=== PATIENT | female | born 1990 | race Caucasian/White ===

== ENCOUNTER 2022-02-23 10:22 | Observation (INO) | payer BC, SELFPAY ==
[2022-02-23] VITALS (18 sets, daily range): BP systolic 95–126; BP diastolic 39–82; PULSE 76–111; RESP 16–20; TEMP 36.8–39.1; O2SAT 94–98; BMI 30.4; BMI 22.6
[2022-02-23 11:08] LABS: Basophils # 0.1 K/mm3 (0-0.2); Basophils % 0.3 % (0.1-2.0); Eosinophils # 0.4 K/mm3 (0.0-0.4); Hematocrit 38.7 % (37.0-47.0); Hemoglobin 12.7 g/dL (12.2-16.2); Lymphocytes # 1.3 K/mm3 (0.7-4.5); Lymphocytes % 6.9 % (10-50); Mean Corpuscular HGB Conc 32.8 g/dL (31.8-35.4); Mean Corpuscular Hemoglobin 30.7 pg (27.0-31.2); Mean Corpuscular Volume 93.6 fl (81-99); Mean Platelet Volume 7.9 fl (7.4-10.4); Monocytes # 0.8 K/mm3 (0.1-1.0); Monocytes % 3.9 % (1.7-9.3); Neutrophils # 16.9 K/mm3 (1.8-7.8); Neutrophils % 86.9 % (37.0-80.0); Platelet Count 364 K/mm3 (142-424); Red Blood Count 4.13 M/mm3 (4.20-5.40); Red Cell Distribution Width 12.8 % (11.5-17.5); White Blood Count 19.4 K/mm3 (4.8-10.8)
[2022-02-23 11:09] LABS: Chloride 106 mmol/L (98-107); Potassium 3.2 mmoL/L (3.5-5.1); Sodium 140 mmol/L (136-145)
--- NOTE | 2022-02-23 11:10 | HMH.EDGENADL ---
Discharge Plan Disposition Patient Disposition: Admitted as Observation Condition: Fair Chief Complaint: Fever Referrals Follow up/Referrals: Provider,Referral, [Primary Care Provider] - See instructions Clinical Impressions Clinical Impression: Abscess of breast Discharge ED Provider: Elie Self General Adult HPI General Chief complaint: Fever Stated complaint: possible infection on breasts, swollen, fever Time Seen by Provider: 02/23/22 11:04 Mode of Arrival: Ambulatory Source of Information: Patient Limitations: No Limitations Description of Symptoms (Recalled from ER Triage Doc. by RN): c/o fever with redness, swelling with yellow pus coming from her left breast. Pt states that she got her nipples pierced approx a month ago and she didnt follow after care as instructed. Pt states that Feb 16 is when she started with yellow pus and then over night the swelling started. 600mg of advil around 7am this morning. History of Present Illness HPI narrative: Complains of abscesses in both breasts. States that she had her nipples pierced on 02/07/2022. On 02/16/2022 she began feeling feverish, flulike symptoms. The next day she had improvement in flu symptoms, but development of redness, induration, pain and tenderness on both breasts, lateral left breast and medial right breast. States that she has been able to express some pus from the nipples, but she does not have any pain at the nipples where her piercings are. Related Data Allergies Allergy/AdvReac Type Severity Reaction Status Date / Time No Known Allergies Allergy Verified 02/23/22 10:43 [facility] Disclaimer: The information contained in this section may have been updated after the patient was seen, as this information can be updated by other users. Social History Smoking Status: Current every day smoker ROS Obtained: Yes Systems reviewed as appropriate & no additional complaints except as documented Constitutional Constitutional: Reports chills, Reports fever(s), Denies headache(s) and Denies weakness ENT Ears, Nose, Mouth, and Throat: Denies headache(s), Denies nasal discharge and Denies sore throat Cardiovascular Cardiovascular: Denies chest pain Respiratory Respiratory: Denies shortness of breath and Denies cough Gastrointestinal Gastrointestingal: Denies abdominal pain, constipation, diarrhea or vomiting Genitourinary Female Genitourinary: Denies difficulty voiding, Denies dysuria and Denies flank pain Musculoskeletal Musculoskeletal: Denies numbness Integumentary/Breasts Skin/Breast: Reports as per HPI Neurologic Neurologic: Denies headache(s), Denies numbness and Denies weakness Physical Exam General General appearance: alert and in no apparent distress Head Head exam: atraumatic and normocephalic Eye Eye exam: Present normal appearance and EOMI ENT ENT exam: Present mucous membranes moist Neck Neck exam: Present normal inspection and trachea midline Chest Chest inspection: Present normal inspection and symmetric chest wall rise Expanded Chest Exam Female Torso: 1. 5 x 7 cm indurated, erythematous, tender mass 2. 5 x 7 cm indurated, erythematous, tender mass Respiratory Respiratory exam: Present normal lung sounds bilaterally; Absent respiratory distress Cardiovascular Cardiovascular exam: Present regular rate, normal rhythm and normal heart sounds Abdominal Exam Abdominal exam: Present soft and normal bowel sounds; Absent distention, tenderness, guarding, rebound or rigidity Extremities Exam Extremities exam: Present normal inspection Neurological Exam Neurological exam: Present alert and oriented X3 Psychiatric Psychiatric exam: Present normal affect and normal mood Skin Skin exam: Present warm and dry Medical Decision Making Anselmo Inquiry Pt receiving controlled substance: No Vital Signs: 02/23/22 10:24 02/23/22 11:00 02/23/22 11:30 Temperature 98.6 F Temperature Source Oral Pulse Rate 98 H 92 H
[2022-02-23 11:12] LABS: Alanine Aminotransferase 18 U/L (12-78); Albumin Level 4.2 g/dl (3.5-5.0); Albumin/Globulin Ratio 1.3 (1.1-1.8); Alkaline Phosphatase 94 U/L (38-126); Anion Gap 14.2 mEq/L (5-15); Aspartate Amino Transferase 24 U/L (14-36); Bilirubin,Total 0.3 mg/dl (0.2-1.3); Blood Urea Nitrogen 7 mg/dl (7-17); Calcium 9.4 mg/dl (8.4-10.2); Carbon Dioxide 23 mmol/L (22.0-30.0); Creatinine Clearance Estimated 145 mL/min (50-200); Estimated Glomerular Filt Rate 98 ml/min (>60); GFR (African American) 119 ML/MIN (>60); Globulin 3.2 g/dL (1.3-3.2); Glucose 127 mg/dl (74-100); Total Protein,Serum 7.4 g/dl (6.3-8.2)
[2022-02-23 11:13] LABS: MANUAL DIFFERENTIAL MANUAL DIFFERENTIAL (MANUAL DIFF)
--- NOTE | 2022-02-23 11:14 | PC.NURSE ---
JJ PAGED SURGEON CONTACT LENS MANUFACTURER.
[2022-02-23 11:18] LABS: C-Reactive Protein 72.6 mg/L (0-4)
[2022-02-23 11:19] LABS: Lactic Acid 0.6 mmol/L (0.7-2.1)
[2022-02-23 11:22] LABS: Eosinophils % 1 % (0-3); Lymphocytes % 8 % (10-50); Monocytes % 9 % (2-9); Neutrophils % 80 % (42-76); Platelet Estimate Normal; RBC Morphology Normal; Total Cells Counted 100
[2022-02-23 11:38] LABS: HCG Qualitative, Serum Negative (Negative)
[2022-02-23 11:43] LABS: Erythrocyte Sedimentation Rate 54 mm/hr (0-20)
--- NOTE | 2022-02-23 12:37 | PC.NURSE ---
paged dr tinajero
--- NOTE | 2022-02-23 12:58 | PC.NURSE ---
nylon operator paging dr. tinajero again at this time
--- NOTE | 2022-02-23 12:59 | PC.NURSE ---
DENNISE YUEN speaking with dr. tinajero
--- NOTE | 2022-02-23 13:08 | PC.NURSE ---
Deondre Hayes here to see pt.
--- NOTE | 2022-02-23 13:26 | EXP.HP ---
History of Present Illness *Admission Date: 02/23/22 *Reason for visit:: Breast pain and fever *History of present illness: Complains of abscesses in both breasts.? States that she had her nipples pierced on 02/07/2022.? On 02/16/2022 she began feeling feverish, flulike symptoms.? The next day she had improvement in flu symptoms, but development of redness, induration, pain and tenderness on both breasts, lateral left breast and medial right breast.? States that she has been able to express some pus from the nipples, but she does not have any pain at the nipples where her piercings are. (above as per ER physician) [facility] Disclaimer: The information contained in this section may have been updated after the patient was seen, as this information can be updated by other users. Medical History (Updated 02/23/22 @ 17:47 by Tiffany Minor RN) No significant past medical history Surgical History (Updated 02/23/22 @ 17:47 by Tiffany Minor RN) History of tooth extraction Family History Cancer Social History (Updated 02/23/22 @ 17:47 by Tiffany Minor RN) Smoking Status: Current every day smoker alcohol intake: current current occupational status: other Travel in the last 8 weeks: None Review of Systems Constitutional Constitutional: Reports body ache(s), Reports chills, Reports fever(s), Denies headache(s), Reports malaise and Denies weakness Eyes Eyes: Denies blurry vision and Denies diplopia ENT Ears, Nose, Mouth, and Throat: Denies headache(s), Denies nasal congestion and Denies sinus pain *Cardiovascular Cardiovascular: Denies chest pain and Denies dyspnea *Respiratory Respiratory: Denies cough and Denies dyspnea *Gastrointestinal Gastrointestinal: Denies loose stools, Reports nausea and Denies vomiting *Genitourinary Genitourinary: Denies difficulty voiding, Denies dysuria and Reports nipple discharge *Musculoskeletal Musculoskeletal: Reports myalgias and Denies numbness Integumentary/Breasts Skin/Breast: Reports breast pain (bilateral), Reports breast skin changes (erythema), Reports breast swelling and Reports nipple discharge *Neurologic Neurologic: Denies headache(s), Denies numbness and Denies weakness Meds Home Medications and Allergies Home Medications Medication Instructions Recorded Confirmed Type No Known Home Medications 02/23/22 02/23/22 History New Prescriptions to Start Prescriptions: Allergies Allergy/AdvReac Type Severity Reaction Status Date / Time No Known Allergies Allergy Verified 02/23/22 10:43 Exam Data for Last 24 hours Vital signs and Labs for Last 24 Hours: Temp Pulse Resp BP Pulse Ox 98.6 F 86 18 121/71 96 02/23/22 10:24 02/23/22 13:00 02/23/22 13:00 02/23/22 13:00 02/23/22 13:00 Laboratory Results - last 24 hr 02/23/22 10:50: WBC 19.4 H, RBC 4.13 L, Hgb 12.7, Hct 38.7, MCV 93.6, MCH 30.7, MCHC 32.8, RDW 12.8, Plt Count 364, MPV 7.9, Neut % (Auto) 86.9 H, Lymph % (Auto) 6.9 L, [place] % (Auto) 3.9, Eos % (Auto) 2.0, Baso % (Auto) 0.3, Neut # (Auto) 16.9 H, Lymph # (Auto) 1.3, [place] # (Auto) 0.8, Eos # (Auto) 0.4, Baso # (Auto) 0.1, Total Counted 100, Neutrophils % (Manual) 80 H, Lymphocytes % (Manual) 8 L, Atypical Lymphs % 2.0, Monocytes % (Manual) 9, Eosinophils % (Manual) 1, Platelet Estimate Normal, RBC Morphology Normal, ESR 54 H 02/23/22 10:50: Sodium 140, Potassium 3.2 L, Chloride 106, Carbon Dioxide 23, Anion Gap 14.2, BUN 7, Creatinine 0.70, Estimated Creat Clear 145, Estimated GFR 98, Est GFR ( Amer) 119, Glucose 127 H, Calcium 9.4, Total Bilirubin 0.3, AST 24, ALT 18, Alkaline Phosphatase 94, C-Reactive Protein 72.6 H, Total Protein 7.4, Albumin 4.2, Globulin 3.2, Albumin/Globulin Ratio 1.3 02/23/22 10:50: Lactate 0.6 L 02/23/22 10:50: Serum HCG, Qual Negative I & O for Last 24 hours: Intake & Output 02/21/22 02/22/22 02/23/22 02/24/22 11:59 11:5
[2022-02-23 13:31] LABS: Coronavirus 19, PCR Not Detected (NotDetected); Influenza A, PCR Not Detected (NotDetected); Influenza B, PCR Not Detected (NotDetected)
--- NOTE | 2022-02-23 13:50 | PC.NURSE ---
Bedside with Dr Graves while he assessed pt
--- NOTE | 2022-02-23 14:03 | EXP.SURG.CON ---
History of Present Illness *Admission Date: 02/23/22 *Reason for visit:: Bilateral breast abscesses *History of present illness: This is a 31-year-old female seen in consultation after evaluation emergency department for developing bilateral breast abscesses. Please see HPI from Emergency Department evaluation and admission H&P below. Forwarded from admission H&P/Emergency Department evaluation: Complains of abscesses in both breasts.? States that she had her nipples pierced on 02/07/2022.? On 02/16/2022 she began feeling feverish, flulike symptoms.? The next day she had improvement in flu symptoms, but development of redness, induration, pain and tenderness on both breasts, lateral left breast and medial right breast.? States that she has been able to express some pus from the nipples, but she does not have any pain at the nipples where her piercings are. (above as per ER physician) [facility] Disclaimer: The information contained in this section may have been updated after the patient was seen, as this information can be updated by other users. Social History Smoking Status: Current every day smoker alcohol intake: current current occupational status: other Travel in the last 8 weeks: None Review of Systems Constitutional Constitutional: Denies headache(s) and Denies weakness ENT Ears, Nose, Mouth, and Throat: Denies headache(s) *Musculoskeletal Musculoskeletal: Denies numbness *Neurologic Neurologic: Denies headache(s), Denies numbness and Denies weakness Meds Home Medications and Allergies New Prescriptions to Start Prescriptions: Allergies Allergy/AdvReac Type Severity Reaction Status Date / Time No Known Allergies Allergy Verified 02/23/22 10:43 Exam (Inpt) Vital signs and Labs for Last 24 Hours: Temp Pulse Resp BP Pulse Ox 98.6 F 76 16 115/67 95 02/23/22 10:24 02/23/22 13:30 02/23/22 13:30 02/23/22 13:30 02/23/22 13:30 Laboratory Results - last 24 hr 02/23/22 10:50: WBC 19.4 H, RBC 4.13 L, Hgb 12.7, Hct 38.7, MCV 93.6, MCH 30.7, MCHC 32.8, RDW 12.8, Plt Count 364, MPV 7.9, Neut % (Auto) 86.9 H, Lymph % (Auto) 6.9 L, [place] % (Auto) 3.9, Eos % (Auto) 2.0, Baso % (Auto) 0.3, Neut # (Auto) 16.9 H, Lymph # (Auto) 1.3, [place] # (Auto) 0.8, Eos # (Auto) 0.4, Baso # (Auto) 0.1, Total Counted 100, Neutrophils % (Manual) 80 H, Lymphocytes % (Manual) 8 L, Atypical Lymphs % 2.0, Monocytes % (Manual) 9, Eosinophils % (Manual) 1, Platelet Estimate Normal, RBC Morphology Normal, ESR 54 H 02/23/22 10:50: Sodium 140, Potassium 3.2 L, Chloride 106, Carbon Dioxide 23, Anion Gap 14.2, BUN 7, Creatinine 0.70, Estimated Creat Clear 145, Estimated GFR 98, Est GFR ( Amer) 119, Glucose 127 H, Calcium 9.4, Total Bilirubin 0.3, AST 24, ALT 18, Alkaline Phosphatase 94, C-Reactive Protein 72.6 H, Total Protein 7.4, Albumin 4.2, Globulin 3.2, Albumin/Globulin Ratio 1.3 02/23/22 10:50: Lactate 0.6 L 02/23/22 10:50: Serum HCG, Qual Negative I & O for Labs for Last 24 Hours: Intake & Output 02/21/22 02/22/22 02/23/22 02/24/22 11:59 11:59 11:59 11:59 Weight 172 lb Constitutional: no acute distress Respiratory: Absent respiratory distress Cardiac: Present Reg Rate and Rhythm Comment:: Firm indurated/erythematous mass lesion consistent with developing abscess along the right medial breast and a similar (slightly larger) developing abscess along the left lateral breast. No fluctuance. Results Labs Result diagrams: 02/23/22 10:50 02/23/22 10:50 Labs: Laboratory Results - last 24 hr 02/23/22 10:50: WBC 19.4 H, RBC 4.13 L, Hgb 12.7, Hct 38.7, MCV 93.6, MCH 30.7, MCHC 32.8, RDW 12.8, Plt Count 364, MPV 7.9, Neut % (Auto) 86.9 H, Lymph % (Auto) 6.9 L, [place] % (Auto) 3.9, Eos % (Auto) 2.0, Baso % (Auto) 0.3, Neut # (Auto) 16.9 H, Lymph # (Auto) 1.3, [place] # (Auto) 0.8, Eos # (Auto) 0.4, Baso # (Auto) 0.1, Total Counted 100, Neutrophils % (Manual) 80 H, Lymphocytes % (Manual)
--- NOTE | 2022-02-23 14:09 | PC.NURSE ---
pt given meal tray
--- NOTE | 2022-02-23 14:18 | PC.NURSE ---
DR MORALEZ GONNA TAKE PT TO OR TOMORROW , MEAL TRAY ORDERED
--- NOTE | 2022-02-23 14:28 | EXP.PHA.CONS ---
Pharmacy Consult Date: 02/23/22 Time: 14:31 Referring provider: HERIBERTO Reason for Consult:: PHARMACY MANAGEMENT OF VANCOMYCIN THERAPY Allergies Allergy/AdvReac Type Severity Reaction Status Date / Time No Known Allergies Allergy Verified 02/23/22 10:43 Home Medications Medication Instructions Recorded Confirmed Type No Known Home Medications 02/23/22 02/23/22 History New Prescriptions to Start Prescriptions: Height: 1.6 m Weight: 78.018 kg Laboratory Results:: Laboratory Results - last 24 hr 02/23/22 10:50: WBC 19.4 H, RBC 4.13 L, Hgb 12.7, Hct 38.7, MCV 93.6, MCH 30.7, MCHC 32.8, RDW 12.8, Plt Count 364, MPV 7.9, Neut % (Auto) 86.9 H, Lymph % (Auto) 6.9 L, [place] % (Auto) 3.9, Eos % (Auto) 2.0, Baso % (Auto) 0.3, Neut # (Auto) 16.9 H, Lymph # (Auto) 1.3, [place] # (Auto) 0.8, Eos # (Auto) 0.4, Baso # (Auto) 0.1, Total Counted 100, Neutrophils % (Manual) 80 H, Lymphocytes % (Manual) 8 L, Atypical Lymphs % 2.0, Monocytes % (Manual) 9, Eosinophils % (Manual) 1, Platelet Estimate Normal, RBC Morphology Normal, ESR 54 H 02/23/22 10:50: Sodium 140, Potassium 3.2 L, Chloride 106, Carbon Dioxide 23, Anion Gap 14.2, BUN 7, Creatinine 0.70, Estimated Creat Clear 145, Estimated GFR 98, Est GFR ( Amer) 119, Glucose 127 H, Calcium 9.4, Total Bilirubin 0.3, AST 24, ALT 18, Alkaline Phosphatase 94, C-Reactive Protein 72.6 H, Total Protein 7.4, Albumin 4.2, Globulin 3.2, Albumin/Globulin Ratio 1.3 02/23/22 10:50: Lactate 0.6 L 02/23/22 10:50: Serum HCG, Qual Negative 02/23/22 13:15: SARS-CoV-2 (PCR) Not detected, Influenza A Untype (PCR) Not detected, Influenza Type B (PCR) Not detected Assessment and Plan Assessment and plan all Dx Assessment and Plan for all problems:: VANCOMYCIN 1500MG IV EVERY 12 HOURS STARTED IN ER. PHARMACY WILL FOLLOW DAILY WHILE PT RECEIVING VANCOMYCIN
--- NOTE | 2022-02-23 16:15 | PC.NURSE ---
pt assigned to room 266 per warehouse lead, states room has to be cleaned and will notify us when room is ready
--- NOTE | 2022-02-23 16:17 | PC.NURSE ---
updated pt on room assignment, pt given warm blanket
--- NOTE | 2022-02-23 16:55 | PC.NURSE ---
DR BAINS AT BS
--- NOTE | 2022-02-23 17:06 | PC.NURSE ---
report called to garo tapia in scu at this time, states she will be down to transport pt.
[2022-02-24] VITALS (21 sets, daily range): BP systolic 97–138; BP diastolic 48–71; PULSE 62–99; RESP 14–18; TEMP 36.6–38.2; O2SAT 91–96; BMI 22.6
--- NOTE | 2022-02-24 06:19 | PC.NURSE ---
pt with bilateral breast redness, tenderness and warm to touch, pt rates pain 9/10; pt has been febrile this shift with temp 102.4 to 100.8; pt is alert and oriented x4, nipple piercings still in place. no acute distress noted.
[2022-02-24 06:25] LABS: Chloride 106 mmol/L (98-107)
[2022-02-24 06:26] LABS: Potassium 3.8 mmoL/L (3.5-5.1); Sodium 137 mmol/L (136-145)
[2022-02-24 06:29] LABS: Anion Gap 12.8 mEq/L (5-15); Blood Urea Nitrogen 7 mg/dl (7-17); Calcium 8.4 mg/dl (8.4-10.2); Carbon Dioxide 22 mmol/L (22.0-30.0); Creatinine Clearance Estimated 150 mL/min (50-200); Estimated Glomerular Filt Rate 98 ml/min (>60); GFR (African American) 119 ML/MIN (>60); Glucose 111 mg/dl (74-100)
[2022-02-24 06:33] LABS: Basophils # 0.1 K/mm3 (0-0.2); Basophils % 0.3 % (0.1-2.0); Eosinophils # 0.4 K/mm3 (0.0-0.4); Eosinophils % 2.3 % (0.1-12.0); Hemoglobin 11.9 g/dL (12.2-16.2); Lymphocytes # 1.7 K/mm3 (0.7-4.5); Lymphocytes % 10.3 % (10-50); Mean Corpuscular HGB Conc 32.2 g/dL (31.8-35.4); Mean Corpuscular Hemoglobin 29.9 pg (27.0-31.2); Mean Corpuscular Volume 92.9 fl (81-99); Monocytes # 0.9 K/mm3 (0.1-1.0); Monocytes % 5.5 % (1.7-9.3); Neutrophils # 13.3 K/mm3 (1.8-7.8); Neutrophils % 81.5 % (37.0-80.0); Platelet Count 330 K/mm3 (142-424); Red Blood Count 3.98 M/mm3 (4.20-5.40); White Blood Count 16.3 K/mm3 (4.8-10.8)
[2022-02-24 06:36] LABS: MANUAL DIFFERENTIAL MANUAL DIFFERENTIAL (MANUAL DIFF)
--- NOTE | 2022-02-24 08:12 | EXP.ACUTE.PN ---
Subjective *Date: 02/24/22 *Time: 08:12 Interval history: Patient states she still feels bad. She has been running a fever. She is supposed to go to surgery this am. Medical Exam Vital signs and Labs for Last 24 Hours: Vital Signs Temp Pulse Pulse Resp BP BP Pulse Ox 02/24/22 08:00 100.1 F H 97 H 18 102/53 L 94 L 02/24/22 03:42 100.8 F H 99 H 14 105/63 L 96 02/23/22 20:00 94 L 02/23/22 20:00 102.4 F H 104 H 16 101/55 L 94 L 02/23/22 17:10 98.3 F 94 H 19 115/61 02/23/22 17:49 98.8 F 84 16 113/63 98 02/23/22 17:33 16 02/23/22 17:03 98.3 F 02/23/22 16:30 88 95/39 L 98 02/23/22 16:00 80 111/58 L 96 02/23/22 16:23 99.0 F 02/23/22 15:30 84 18 105/62 L 97 02/23/22 15:00 78 18 103/60 L 96 02/23/22 14:30 80 16 106/60 L 98 02/23/22 13:30 76 16 115/67 95 02/23/22 13:00 86 18 121/71 96 02/23/22 12:30 78 16 100/71 L 96 02/23/22 12:00 80 18 116/72 97 02/23/22 11:30 92 H 20 114/69 96 02/23/22 11:00 98 H 18 117/65 96 02/23/22 10:24 98.6 F 111 H 18 126/82 97 Intake and Output 02/23/22 02/24/22 02/24/22 19:59 03:59 11:59 Intake Total 240 / 1051 811 / 1051 Output Total 0 / 0 0 / 0 Balance 240 / 1051 0 / 1051 811 / 1051 Intake: Intake, Oral Amount 240 / 240 Intake, Total IV Amount 811 / 811 0.9 % Sodium Chloride 1,000 ml 511 / 511 @ 100 mls/hr IV .Q10H [facility] Rx#: [id number] Vancomycin/Water For Inj (Peg) 300 / 300 1.5 gm In 300 ml @ 150 mls/hr IV Q12H [facility] Rx#:[id number] Output: Output, Urine Amount 0 / 0 0 / 0 Other: Number of Unmeasured Voids 0 1 Weight 178 lb 178 lb 3 oz Patient Weight 02/24/22 11:59 Weight 178 lb 3 oz Laboratory Results - last 24 hr 02/23/22 10:50: WBC 19.4 H, RBC 4.13 L, Hgb 12.7, Hct 38.7, MCV 93.6, MCH 30.7, MCHC 32.8, RDW 12.8, Plt Count 364, MPV 7.9, Neut % (Auto) 86.9 H, Lymph % (Auto) 6.9 L, [place] % (Auto) 3.9, Eos % (Auto) 2.0, Baso % (Auto) 0.3, Neut # (Auto) 16.9 H, Lymph # (Auto) 1.3, [place] # (Auto) 0.8, Eos # (Auto) 0.4, Baso # (Auto) 0.1, Total Counted 100, Neutrophils % (Manual) 80 H, Lymphocytes % (Manual) 8 L, Atypical Lymphs % 2.0, Monocytes % (Manual) 9, Eosinophils % (Manual) 1, Platelet Estimate Normal, RBC Morphology Normal, ESR 54 H 02/23/22 10:50: Sodium 140, Potassium 3.2 L, Chloride 106, Carbon Dioxide 23, Anion Gap 14.2, BUN 7, Creatinine 0.70, Estimated Creat Clear 145, Estimated GFR 98, Est GFR ( Amer) 119, Glucose 127 H, Calcium 9.4, Total Bilirubin 0.3, AST 24, ALT 18, Alkaline Phosphatase 94, C-Reactive Protein 72.6 H, Total Protein 7.4, Albumin 4.2, Globulin 3.2, Albumin/Globulin Ratio 1.3 02/23/22 10:50: Lactate 0.6 L 02/23/22 10:50: Serum HCG, Qual Negative 02/23/22 13:15: SARS-CoV-2 (PCR) Not detected, Influenza A Untype (PCR) Not detected, Influenza Type B (PCR) Not detected 02/24/22 05:27: WBC 16.3 H, RBC 3.98 L, Hgb 11.9 L, Hct 37.0, MCV 92.9, MCH 29.9, MCHC 32.2, RDW 13.0, Plt Count 330, MPV 8.0, Neut % (Auto) 81.5 H, Lymph % (Auto) 10.3, [place] % (Auto) 5.5, Eos % (Auto) 2.3, Baso % (Auto) 0.3, Neut # (Auto) 13.3 H, Lymph # (Auto) 1.7, [place] # (Auto) 0.9, Eos # (Auto) 0.4, Baso # (Auto) 0.1 02/24/22 05:27: Sodium 137, Potassium 3.8, Chloride 106, Carbon Dioxide 22, Anion Gap 12.8, BUN 7, Creatinine 0.70, Estimated Creat Clear 150, Estimated GFR 98, Est GFR ( Amer) 119, Glucose 111 H, Calcium 8.4 I & O for Labs for Last 24 Hours: Intake & Output 02/21/22 02/22/22 02/23/22 02/24/22 11:59 11:59 11:59 11:59 Intake Total 1051 / 1051 Output Total 0 / 0 Balance 1051 / 1051 Weight 172 lb 178 lb 3 oz Constitutional: Present no acute distress Respiratory: Present CTA bilaterally Cardiac: Present Reg Rate and Rhythm GI: Present soft and normal bowel sounds; Absent distention or tenderness Extremities: Absent edema, clubbing or cyano
--- NOTE | 2022-02-24 08:42 | EXP.SURG.PN ---
Subjective Patient reports: no new complaints and still having pain Exam Data for Last 24 hours Vital signs and Labs for Last 24 Hours: Temp Pulse Resp BP Pulse Ox 100.1 F H 97 H 18 102/53 L 94 L 02/24/22 08:00 02/24/22 08:00 02/24/22 08:00 02/24/22 08:00 02/24/22 08:00 Laboratory Results - last 24 hr 02/23/22 10:50: WBC 19.4 H, RBC 4.13 L, Hgb 12.7, Hct 38.7, MCV 93.6, MCH 30.7, MCHC 32.8, RDW 12.8, Plt Count 364, MPV 7.9, Neut % (Auto) 86.9 H, Lymph % (Auto) 6.9 L, [place] % (Auto) 3.9, Eos % (Auto) 2.0, Baso % (Auto) 0.3, Neut # (Auto) 16.9 H, Lymph # (Auto) 1.3, [place] # (Auto) 0.8, Eos # (Auto) 0.4, Baso # (Auto) 0.1, Total Counted 100, Neutrophils % (Manual) 80 H, Lymphocytes % (Manual) 8 L, Atypical Lymphs % 2.0, Monocytes % (Manual) 9, Eosinophils % (Manual) 1, Platelet Estimate Normal, RBC Morphology Normal, ESR 54 H 02/23/22 10:50: Sodium 140, Potassium 3.2 L, Chloride 106, Carbon Dioxide 23, Anion Gap 14.2, BUN 7, Creatinine 0.70, Estimated Creat Clear 145, Estimated GFR 98, Est GFR ( Amer) 119, Glucose 127 H, Calcium 9.4, Total Bilirubin 0.3, AST 24, ALT 18, Alkaline Phosphatase 94, C-Reactive Protein 72.6 H, Total Protein 7.4, Albumin 4.2, Globulin 3.2, Albumin/Globulin Ratio 1.3 02/23/22 10:50: Lactate 0.6 L 02/23/22 10:50: Serum HCG, Qual Negative 02/23/22 13:15: SARS-CoV-2 (PCR) Not detected, Influenza A Untype (PCR) Not detected, Influenza Type B (PCR) Not detected 02/24/22 05:27: WBC 16.3 H, RBC 3.98 L, Hgb 11.9 L, Hct 37.0, MCV 92.9, MCH 29.9, MCHC 32.2, RDW 13.0, Plt Count 330, MPV 8.0, Neut % (Auto) 81.5 H, Lymph % (Auto) 10.3, [place] % (Auto) 5.5, Eos % (Auto) 2.3, Baso % (Auto) 0.3, Neut # (Auto) 13.3 H, Lymph # (Auto) 1.7, [place] # (Auto) 0.9, Eos # (Auto) 0.4, Baso # (Auto) 0.1 02/24/22 05:27: Sodium 137, Potassium 3.8, Chloride 106, Carbon Dioxide 22, Anion Gap 12.8, BUN 7, Creatinine 0.70, Estimated Creat Clear 150, Estimated GFR 98, Est GFR ( Amer) 119, Glucose 111 H, Calcium 8.4 I & O for Last 24 hours: Intake & Output 02/21/22 02/22/22 02/23/22 02/24/22 11:59 11:59 11:59 11:59 Intake Total 1051 / 1051 Output Total 0 / 0 Balance 1051 / 1051 Weight 172 lb 178 lb 3 oz Constitutional Constitutional: no acute distress *Routine Respiratory Exam Respiratory: Absent respiratory distress *Routine Cardiovascular Exam Cardiovascular: Absent tachycardia *Routine Skin Exam Comments: Moderate improvement noted with regard to right medial breast abscess. Less induration and improved cellulitis. Worsening induration and tenderness along left lateral breast abscess. Moderate expansion of cellulitic component. Progress Note: A&P Assessment and plan (1) Abscess of breast: Status: Acute Assessment and plan: Right breast abscess improved on current antibiotics; however, progression of left breast abscess noted this AM. Incision and drainage of bilateral breast abscesses today. I have discussed the risks and benefits including, but not limited to: Bleeding Infection Damage to surrounding tissue Inherent risks of sedation The patient agrees to proceed. (2) Leukocytosis: Status: Acute
[2022-02-24 09:39] LABS: Eosinophils % 2 % (0-3); Lymphocytes % 13 % (10-50); Monocytes % 4 % (2-9); Neutrophils % 81 % (42-76); Platelet Estimate Normal; RBC Morphology Normal; Total Cells Counted 100
--- NOTE | 2022-02-24 10:33 | EXP.ANES.CKL ---
[facility] Disclaimer: The information contained in this section may have been updated after the patient was seen, as this information can be updated by other users. Medical History (Updated 02/23/22 @ 17:47 by Tiffany Minor RN) No significant past medical history Surgical History (Updated 02/23/22 @ 17:47 by Tiffany Minor RN) History of tooth extraction Family History Other Cancer Social History (Updated 02/23/22 @ 17:47 by Tiffany Minor RN) Smoking Status: Current every day smoker alcohol intake: current substance use type: denies use current occupational status: other Travel in the last 8 weeks: None [facility] Anesthesia Checklist Patient Identification Patient Identification: Arm Band Structural Data Admitted From: Home Planned Operative Procedure/s: I&D Bilateral Breast Abscess Consent for Planned Operative Procedure(s) Verified: Yes Verified Documents: Surgical Consent and History and Physical NPO Status Verified Time NPO: 00:00 Additional verifications Anesthesia Reactions: No Airway Assessment C-Spine Mobility Assessed: Yes TMJ Mobility Assessed: Yes Dentition: Good Dentition Neurological Assessment Level of Consciousness: Awake and Alert Anesthesia Plan Anesthesia Risk discussed: Yes Anesthesia Plan: Verified ASA Class: II Anesthesia Type: General
--- NOTE | 2022-02-24 11:01 | P.OP_ITS ---
Date of procedure: 02/24/22 Pre-op Diagnosis:: Bilateral breast abscesses Post-op Diagnosis:: Same Procedure performed:: Incision and drainage of bilateral breast abscesses Surgeon:: Demetrio Graves MD [employer] OPERATOR:: Jamaal Navarro Anesthesia: LMA Estimated blood loss (mL): 25 Operative findings:: Purulent fluid obtained for gram stain/culture Operative note:: After informed consent was obtained the patient was taken to the operating room and placed in the supine position. General anesthesia with laryngeal mask airway was achieved. Her bilateral breast were prepped and draped in a sterile fashion. #1 Prolene suture was placed through the patient's bilateral piercings per her request. Electrocautery was utilized to transect an ellipse of skin overlying the right medial abscess. The excised skin was sent for pathologic evaluation. Purulent fluid was obtained for gram stain/culture. Entire cavity was evacuated and packed with Kerlix. The left lateral abscess was treated in the same manner. The left abscess projected to the margin of the nipple/areolar complex. Once both wounds were packed, dressings were applied and the patient was transferred to recovery in stable condition. Condition: stable Disposition: PACU Specimens:: Fluid for gram stain/culture Right breast inflammatory skin Left breast inflammatory skin Complications:: No immediate
--- NOTE | 2022-02-24 11:09 | P.PNANES_ITS ---
[facility] Anesthesia Record Part I Anesthesia Record I Intake, IV Amount: 800 Estimated blood loss (mL): 25 Urine output (mL): 0 Blood Pressure: 116/66 SaO2: 95 Pulse Rate: 86 Respiratory Rate: 16 Temperature: 99.1 F Patient is:: Drowsy and Stable Stable to PACU at:: 11:05
--- NOTE | 2022-02-24 11:54 | SUR.PHASEI ---
1135-Detailed report called to CHET Cooper at this time, all questions answered 1145- Pt brought to room 266 in stable condition. CHET Cooper at bedside. Bed locked and in the lowest position
--- NOTE | 2022-02-24 14:45 | EXP.ANES.II ---
[facility] Anesthesia Record Part II Anesthesia Record Part II Discharge Time: 11:40 Destination: Intensive Care Unit PACU nurse assessment reviewed?: Yes Patient Condition:: Good Anesthesia Complications:: None Swallowing reflex intact?: Yes Cyanosis?: No Blood Pressure: 97/57 Pulse Rate: 83 Temperature: 98.3 F Mental Status: Alert & Oriented Pain level:: 0 Nausea and/or vomitting:: None Intake, IV Amount: 0
--- NOTE | 2022-02-24 19:10 | PC.NURSE ---
Pt has done well post op. Medicated once w/ Lortab per APR. Remains afebrile post-op. Dressings to bilat breasts w/ serosang drainage present. She is A&Ox4. HR Regular. Lungs CTA. Abdomen soft, non-tender w/ active BS in all quads. No BM this shift. Voiding independently w/o difficulty. remains @ bedside. No needs voiced. Call oren w/in reach.
[2022-02-24 22:53] LABS: Vancomycin,Trough 6.3 ug/mL (5.0-10.0)
[2022-02-25] VITALS: BP 123/68; PULSE 64; RESP 20; TEMP 37.1; O2SAT 96
[2022-02-25 03:40] LABS: Vancomycin,Peak 16.9 ug/ml (11-39)
[2022-02-25 04:00] VITALS: BP 102/53; PULSE 66; RESP 18; TEMP 36.8; O2SAT 98; BMI 23.2
--- NOTE | 2022-02-25 07:11 | PC.NURSE ---
Pt a/o x4. Pt c/o pain 1x. PRN po pain medication administered. Dsg to left breast reinforced. Call light within reach.
[2022-02-25 08:39] VITALS: BP 107/74; PULSE 71; RESP 20; TEMP 36.7; O2SAT 96
--- NOTE | 2022-02-25 10:27 | EXP.SURG.PN ---
Subjective Patient reports: no new complaints and still having pain Exam Data for Last 24 hours Vital signs and Labs for Last 24 Hours: Temp Pulse Resp BP Pulse Ox 98.0 F 71 20 107/74 L 96 02/25/22 08:39 02/25/22 08:39 02/25/22 08:39 02/25/22 08:39 02/25/22 08:39 Laboratory Results - last 24 hr 02/24/22 22:20: Vancomycin Trough 6.3 02/25/22 03:05: Vancomycin Peak 16.9 I & O for Last 24 hours: Intake & Output 02/22/22 02/23/22 02/24/22 02/25/22 11:59 11:59 11:59 11:59 Intake Total 1851 / 1851 2460 / 2460 Output Total 0 / 0 1700 / 1700 Balance 1851 / 1851 760 / 760 Weight 172 lb 178 lb 3 oz 183 lb 2 oz Microbiology Reports for the Last 24 Hours: Microbiology 02/24/22 Unknown Breast,Right - Abscess Gram Stain - Final 02/24/22 Unknown Breast,Right - Abscess Wound Culture - Preliminary Constitutional Constitutional: no acute distress *Routine Respiratory Exam Respiratory: Absent respiratory distress *Routine Cardiovascular Exam Cardiovascular: Absent tachycardia *Routine Skin Exam Comments: Bilateral breast abscess dressings in place. Significant improvement with regard to cellulitis along the right medial breast abscess. Cellulitic blush along the left lateral breast remains. Progress Note: A&P Assessment and plan (1) Abscess of breast: Status: Acute Assessment and plan: Continue antibiotics as per primary service Dressing changes (2) Leukocytosis: Status: Acute
[2022-02-25 10:30] LABS: Basophils # 0.1 K/mm3 (0-0.2); Basophils % 0.5 % (0.1-2.0); Eosinophils # 0.5 K/mm3 (0.0-0.4); Hemoglobin 10.7 g/dL (12.2-16.2); Lymphocytes # 1.6 K/mm3 (0.7-4.5); Lymphocytes % 10.5 % (10-50); Mean Corpuscular HGB Conc 33.6 g/dL (31.8-35.4); Mean Corpuscular Hemoglobin 30.7 pg (27.0-31.2); Mean Corpuscular Volume 91.4 fl (81-99); Monocytes # 0.6 K/mm3 (0.1-1.0); Monocytes % 4.2 % (1.7-9.3); Neutrophils # 12.5 K/mm3 (1.8-7.8); Neutrophils % 81.8 % (37.0-80.0); Platelet Count 353 K/mm3 (142-424); Red Cell Distribution Width 12.7 % (11.5-17.5); White Blood Count 15.3 K/mm3 (4.8-10.8)
[2022-02-25 10:36] LABS: Chloride 109 mmol/L (98-107); Potassium 3.5 mmoL/L (3.5-5.1); Sodium 140 mmol/L (136-145)
[2022-02-25 10:39] LABS: Anion Gap 14.5 mEq/L (5-15); Blood Urea Nitrogen 4 mg/dl (7-17); Calcium 8.2 mg/dl (8.4-10.2); Carbon Dioxide 20 mmol/L (22.0-30.0); Creatinine Clearance Estimated 216 mL/min (50-200); Estimated Glomerular Filt Rate 145 ml/min (>60); GFR (African American) 175 ML/MIN (>60); Glucose 132 mg/dl (74-100)
[2022-02-25 10:40] LABS: MANUAL DIFFERENTIAL MANUAL DIFFERENTIAL (MANUAL DIFF)
[2022-02-25 11:00] LABS: Eosinophils % 5 % (0-3); Lymphocytes % 10 % (10-50); Monocytes % 3 % (2-9); Neutrophils % 82 % (42-76); Platelet Estimate Normal; RBC Morphology Normal; Total Cells Counted 100
[2022-02-25 12:20] VITALS: BP 110/52; PULSE 67; RESP 20; TEMP 36.6; O2SAT 96
--- NOTE | 2022-02-25 13:03 | P.CONPHA_ITS ---
Pharmacy Consult Date: 02/25/22 Time: 13:04 Referring provider: DR. BAINS Reason for Consult:: VANCOMCYIN LEVELS Allergies Allergy/AdvReac Type Severity Reaction Status Date / Time No Known Allergies Allergy Verified 02/23/22 10:43 Home Medications Medication Instructions Recorded Confirmed Type No Known Home Medications 02/23/22 02/23/22 History New Prescriptions to Start Prescriptions: Height: 1.89 m Weight: 83.064 kg Laboratory Results:: Laboratory Results - last 24 hr 02/24/22 22:20: Vancomycin Trough 6.3 02/25/22 03:05: Vancomycin Peak 16.9 02/25/22 09:48: WBC 15.3 H, RBC 3.50 L, Hgb 10.7 L, Hct 32.0 L, MCV 91.4, MCH 30.7, MCHC 33.6, RDW 12.7, Plt Count 353, MPV 8.0, Neut % (Auto) 81.8 H, Lymph % (Auto) 10.5, [place] % (Auto) 4.2, Eos % (Auto) 3.0, Baso % (Auto) 0.5, Neut # (Auto) 12.5 H, Lymph # (Auto) 1.6, [place] # (Auto) 0.6, Eos # (Auto) 0.5 H, Baso # (Auto) 0.1, Total Counted 100, Neutrophils % (Manual) 82 H, Lymphocytes % (Manual) 10, Monocytes % (Manual) 3, Eosinophils % (Manual) 5 H, Platelet Estimate Normal, RBC Morphology Normal 02/25/22 09:48: Sodium 140, Potassium 3.5, Chloride 109 H, Carbon Dioxide 20 L, Anion Gap 14.5, BUN 4 L D, Creatinine 0.50 L D, Estimated Creat Clear 216, Estimated GFR 145, Est GFR ( Amer) 175 D, Glucose 132 H, Calcium 8.2 L Medical History: Medical History (Updated 02/23/22 @ 17:47 by Tiffany Minor RN) No significant past medical history Assessment and Plan Assessment and plan all Dx Assessment and Plan for all problems:: RECOMMEND INCREASING VANCOMYCIN FROM 1500 MG Q12H TO Q8H STARTING AT 2100 TONIGHT. LEVEL TOMORROW.
--- NOTE | 2022-02-25 14:15 | EXP.ACUTE.PN ---
Subjective *Date: 02/25/22 *Time: 14:15 Interval history: She feels somewhat better. She is afebrile. Surgical note reviewed. Potassium is 3.5. Medical Exam Vital signs and Labs for Last 24 Hours: Vital Signs Temp Pulse Pulse Resp BP BP Pulse Ox 02/25/22 12:20 97.9 F 67 20 110/52 L 96 02/25/22 08:39 98.0 F 71 20 107/74 L 96 02/25/22 04:00 98.3 F 66 18 102/53 L 98 02/25/22 00:00 98.8 F 64 20 123/68 96 02/24/22 20:00 98.2 F 62 18 105/56 L 96 02/24/22 18:35 98.4 F 71 16 102/48 L 95 02/24/22 17:35 77 16 130/63 95 02/24/22 16:35 79 16 131/61 94 L 02/24/22 15:35 98.3 F 86 14 111/60 95 02/24/22 14:35 71 16 123/62 94 L 02/24/22 14:48 98.3 F 83 97/57 L Intake and Output 02/25/22 02/25/22 02/25/22 03:59 11:59 19:59 Intake Total 540 / 2460 960 / 2460 240 / 240 Output Total 0 / 1700 300 / 1700 Balance 540 / 760 660 / 760 240 / 240 Intake: Intake, Oral Amount 240 / 2160 960 / 2160 240 / 240 Intake, Total IV Amount 300 / 300 Vancomycin/Water For Inj (Peg) 300 / 300 1.5 gm In 300 ml @ 150 mls/hr IV Q12H [facility] Rx#:[id number] Output: Output, Urine Amount 0 / 1700 300 / 1700 Other: Number of Unmeasured Voids 1 Weight 183 lb 2 oz 183 lb 2 oz Patient Weight 02/26/22 11:59 Weight 183 lb 2 oz Laboratory Results - last 24 hr 02/24/22 22:20: Vancomycin Trough 6.3 02/25/22 03:05: Vancomycin Peak 16.9 02/25/22 09:48: WBC 15.3 H, RBC 3.50 L, Hgb 10.7 L, Hct 32.0 L, MCV 91.4, MCH 30.7, MCHC 33.6, RDW 12.7, Plt Count 353, MPV 8.0, Neut % (Auto) 81.8 H, Lymph % (Auto) 10.5, [place] % (Auto) 4.2, Eos % (Auto) 3.0, Baso % (Auto) 0.5, Neut # (Auto) 12.5 H, Lymph # (Auto) 1.6, [place] # (Auto) 0.6, Eos # (Auto) 0.5 H, Baso # (Auto) 0.1, Total Counted 100, Neutrophils % (Manual) 82 H, Lymphocytes % (Manual) 10, Monocytes % (Manual) 3, Eosinophils % (Manual) 5 H, Platelet Estimate Normal, RBC Morphology Normal 02/25/22 09:48: Sodium 140, Potassium 3.5, Chloride 109 H, Carbon Dioxide 20 L, Anion Gap 14.5, BUN 4 L D, Creatinine 0.50 L D, Estimated Creat Clear 216, Estimated GFR 145, Est GFR ( Amer) 175 D, Glucose 132 H, Calcium 8.2 L I & O for Labs for Last 24 Hours: Intake & Output 02/23/22 02/24/22 02/25/22 02/26/22 11:59 11:59 11:59 11:59 Intake Total 1851 / 1851 2460 / 2460 240 / 240 Output Total 0 / 0 1700 / 1700 Balance 1851 / 1851 760 / 760 240 / 240 Weight 172 lb 178 lb 3 oz 183 lb 2 oz 183 lb 2 oz Microbiology Reports for the Last 24 Hours: Microbiology 02/23/22 10:50 Blood Blood Culture - Preliminary NO GROWTH AFTER 48 HOURS 02/23/22 10:50 Blood Blood Culture - Preliminary NO GROWTH AFTER 48 HOURS 02/24/22 Unknown Breast,Right - Abscess Gram Stain - Final 02/24/22 Unknown Breast,Right - Abscess Wound Culture - Preliminary Head: Present normocephalic Neck: Present normal inspection Respiratory: Present CTA bilaterally; Absent respiratory distress Cardiac: Present Reg Rate and Rhythm GI: Present soft; Absent tenderness Rectal (female): Present deferred (female): Present deferred Extremities: Present normal inspection Comment:: Dressings are in place. There is erythema still on the left breast area..There seems to be less induration. Neuro: Present alert and oriented x 3 Assessment and Plan *Assessment and plan (1) Abscess of breast: Status: Acute Category: Medical Code(s): N61.1 - Abscess of the breast and nipple (2) Hypokalemia: Status: Acute Category: Medical Code(s): E87.6 - Hypokalemia Plan Continue present care.
[2022-02-25 15:34] VITALS: BP 126/73; PULSE 82; RESP 18; TEMP 36.5; O2SAT 97
--- NOTE | 2022-02-25 18:30 | PC.NURSE ---
PT IS RESTING IN BED. ALERT AND ORIENTED X4. MEDICATED PER MAR FOR DISCOMFORT. EATING AND DRINKING WELL. LUNG SOUNDS CLEAR. ABDOMEN SOFT/NON TENDER WITH ACTIVE BOWEL SOUNDS. DRESSINGS TO BILATERAL BREAST WERE CHANGED THIS SHIFT. PT WAS PRE MEDICATED WITH MORPHINE 30 MIN BEFORE DRESSING CHANGE AND TOLERATED WELL. DRESSING CONSIST OF DRY KERLIX/4X4/TAPE. WILL CONTINUE TO MONITOR.
[2022-02-25 20:00] VITALS: BP 123/77; PULSE 77; RESP 17; TEMP 36.9; O2SAT 97
--- NOTE | 2022-02-25 22:30 | PC.WOUNDNOTE ---
dressings changed to bilateral breasts as ordered,. old dressing and packing removed, wounds packed with sterile 4x4's and covered with sterile 4x4 and tape, pt tolerated well.
[2022-02-26 04:00] VITALS: BP 120/76; PULSE 76; RESP 18; TEMP 36.8; O2SAT 95
--- NOTE | 2022-02-26 06:33 | PC.NURSE ---
pt rested well through the night, pt medicated x1 for pain prior to dressing change, dressings changed to bilaterally breasts and pt tolerated well, vss, iv restarted, no acute distress, no other issues noted. no changes from previous assessment.
[2022-02-26 08:14] VITALS: BP 111/69; PULSE 86; RESP 20; TEMP 36.9; O2SAT 98
--- NOTE | 2022-02-26 10:02 | P.PN_ITS ---
Subjective Patient reports: no new complaints, still having pain and pain is less Exam Data for Last 24 hours Vital signs and Labs for Last 24 Hours: Temp Pulse Resp BP Pulse Ox 98.5 F 86 20 111/69 98 02/26/22 08:14 02/26/22 08:14 02/26/22 08:14 02/26/22 08:14 02/26/22 08:14 Laboratory Results - last 24 hr 02/25/22 09:48: WBC 15.3 H, RBC 3.50 L, Hgb 10.7 L, Hct 32.0 L, MCV 91.4, MCH 30.7, MCHC 33.6, RDW 12.7, Plt Count 353, MPV 8.0, Neut % (Auto) 81.8 H, Lymph % (Auto) 10.5, [place] % (Auto) 4.2, Eos % (Auto) 3.0, Baso % (Auto) 0.5, Neut # (Auto) 12.5 H, Lymph # (Auto) 1.6, [place] # (Auto) 0.6, Eos # (Auto) 0.5 H, Baso # (Auto) 0.1, Total Counted 100, Neutrophils % (Manual) 82 H, Lymphocytes % (Manual) 10, Monocytes % (Manual) 3, Eosinophils % (Manual) 5 H, Platelet Estimate Normal, RBC Morphology Normal 02/25/22 09:48: Sodium 140, Potassium 3.5, Chloride 109 H, Carbon Dioxide 20 L, Anion Gap 14.5, BUN 4 L D, Creatinine 0.50 L D, Estimated Creat Clear 216, Estimated GFR 145, Est GFR ( Amer) 175 D, Glucose 132 H, Calcium 8.2 L I & O for Last 24 hours: Intake & Output 02/23/22 02/24/22 02/25/22 02/26/22 11:59 11:59 11:59 11:59 Intake Total 185 / 1851 2460 / 2460 1590 / 1590 Output Total 0 / 0 1700 / 1700 0 / 0 Balance 185 / 1851 760 / 760 1590 / 1590 Weight 172 lb 178 lb 3 oz 183 lb 2 oz 183 lb 2 oz Microbiology Reports for the Last 24 Hours: Microbiology 02/24/22 Unknown Breast,Right - Abscess Gram Stain - Final 02/24/22 Unknown Breast,Right - Abscess Wound Culture - Preliminary Gram Positive Cocci 02/23/22 10:50 Blood Blood Culture - Preliminary NO GROWTH AFTER 48 HOURS 02/23/22 10:50 Blood Blood Culture - Preliminary NO GROWTH AFTER 48 HOURS Constitutional Constitutional: no acute distress *Routine Respiratory Exam Respiratory: Absent respiratory distress *Routine Cardiovascular Exam Cardiovascular: Absent tachycardia *Routine Skin Exam Comments: Right breast wound margin clean. No erythema. Left breast erythematous blush remains; however, no signs of spreading cellulitis . Wound margin clean. Progress Note: A&P Assessment and plan (1) Abscess of breast: Status: Acute Assessment and plan: Overall, doing fairly well status post incision or drainage. Significant improvement on right-side continues; however, left side abscess was more complex and cellulitic component has not show signs of equivalent improvement. She remains afebrile and states that her pain has improved. Continue dressing changes. Continue antibiotics as per primary service. Close outpatient follow-up planned. No need for urgent repeat incision and drainage on left; however, this may ultimately be required.
[2022-02-26 10:24] VITALS: BMI 32.6
[2022-02-26 11:45] VITALS: BP 105/65; PULSE 67; RESP 20; TEMP 36.7; O2SAT 98
--- NOTE | 2022-02-26 14:30 | P.PN_ITS ---
Subjective *Date: 02/26/22 *Time: 14:30 Interval history: She feels better today. There is definitely improvement of the wound sites including the left breast. There is less erythema. Yesterday her white blood cell count was elevated. There is no blood work obtained yet today. I will order CBC and a BMP. She will benefit from additional IV antibiotics today. Possible discharge tomorrow. See surgical note. Medical Exam Vital signs and Labs for Last 24 Hours: Vital Signs Temp Pulse Resp BP Pulse Ox 02/26/22 11:45 98.0 F 67 20 105/65 L 98 02/26/22 08:14 98.5 F 86 20 111/69 98 02/26/22 04:00 98.3 F 76 18 120/76 95 02/25/22 20:00 97 02/25/22 20:00 98.4 F 77 17 123/77 97 02/25/22 15:34 97.7 F 82 18 126/73 97 Intake and Output 02/26/22 02/26/22 02/26/22 03:59 11:59 19:59 Intake Total 1230 / 2070 240 / 240 Output Total 0 / 0 0 / 0 Balance 0 0 1230 / 2070 240 / 240 Intake: Intake, Oral Amount 680 / 1520 240 / 240 Intake, Total IV Amount 550 / 550 Vancomycin HCl 1,500 mg In 0.9 550 / 550 % Sodium Chloride 250 ml @ 125 mls/hr IV Q8H [facility] Rx#:[id number] Output: Output, Urine Amount 0 / 0 0 / 0 Other: Number of Unmeasured Voids 1 1 Weight 184 lb 5 oz I & O for Labs for Last 24 Hours: Intake & Output 02/24/22 02/25/22 02/26/22 02/27/22 11:59 11:59 11:59 11:59 Intake Total 1851 / 1851 2460 / 2460 2070 / 2070 240 / 240 Output Total 0 / 0 1700 / 1700 0 / 0 Balance 1851 / 1851 760 / 760 2070 / 2070 240 / 240 Weight 178 lb 3 oz 183 lb 2 oz 184 lb 5 oz Microbiology Reports for the Last 24 Hours: Microbiology 02/24/22 Unknown Breast,Right - Abscess Gram Stain - Final 02/24/22 Unknown Breast,Right - Abscess Wound Culture - Preliminary Gram Positive Cocci 02/23/22 10:50 Blood Blood Culture - Preliminary NO GROWTH AFTER 48 HOURS 02/23/22 10:50 Blood Blood Culture - Preliminary NO GROWTH AFTER 48 HOURS Head: Present normocephalic Neck: Present normal inspection Respiratory: Present CTA bilaterally Cardiac: Present Reg Rate and Rhythm GI: Present soft; Absent tenderness Rectal (female): Present deferred (female): Present deferred Extremities: Present normal inspection Skin: Present wounds (Improvement bilaterally. Less induration less erythema.) Neuro: Present alert, awake and oriented x 3 Assessment and Plan *Assessment and plan (1) Abscess of breast: Status: Acute Category: Medical Code(s): N61.1 - Abscess of the breast and nipple (2) Leukocytosis: Status: Acute Category: Medical Code(s): D72.829 - Elevated white blood cell count, unspecified (3) Hypokalemia: Status: Acute Category: Medical Code(s): E87.6 - Hypokalemia Plan See orders. BMP and CBC will be repeated. Saline lock IV. Potassium has corrected. Dosing will be adjusted accordingly.
[2022-02-26 14:59] LABS: Basophils # 0.1 K/mm3 (0-0.2); Eosinophils # 0.7 K/mm3 (0.0-0.4); Eosinophils % 8.7 % (0.1-12.0); Hemoglobin 11.3 g/dL (12.2-16.2); Lymphocytes # 2.4 K/mm3 (0.7-4.5); Lymphocytes % 30.5 % (10-50); Mean Corpuscular HGB Conc 34.1 g/dL (31.8-35.4); Mean Corpuscular Hemoglobin 31.2 pg (27.0-31.2); Mean Corpuscular Volume 91.7 fl (81-99); Mean Platelet Volume 7.8 fl (7.4-10.4); Monocytes # 0.4 K/mm3 (0.1-1.0); Monocytes % 4.6 % (1.7-9.3); Neutrophils # 4.3 K/mm3 (1.8-7.8); Neutrophils % 55.2 % (37.0-80.0); Platelet Count 406 K/mm3 (142-424); Red Cell Distribution Width 12.9 % (11.5-17.5); White Blood Count 7.9 K/mm3 (4.8-10.8)
[2022-02-26 15:02] LABS: Chloride 108 mmol/L (98-107); Potassium 3.7 mmoL/L (3.5-5.1); Sodium 141 mmol/L (136-145)
[2022-02-26 15:05] LABS: Blood Urea Nitrogen 7 mg/dl (7-17); Creatinine Clearance Estimated 136 mL/min (50-200); Estimated Glomerular Filt Rate 84 ml/min (>60); GFR (African American) 102 ML/MIN (>60)
[2022-02-26 15:06] LABS: Anion Gap 11.7 mEq/L (5-15); Calcium 8.2 mg/dl (8.4-10.2); Carbon Dioxide 25 mmol/L (22.0-30.0); Glucose 108 mg/dl (74-100)
[2022-02-26 15:17] LABS: Hemoglobin A1C 5.3 % (4.0-6.0)
[2022-02-26 15:53] VITALS: BP 104/53; PULSE 80; RESP 16; TEMP 36.7; O2SAT 98
--- NOTE | 2022-02-26 18:32 | PC.NURSE ---
Bilateral breast wound dressing changes completed, serosanguinous drainage on gauze noted. VS stable, patient medicated with hydrocodone before and morphine during dressing change. No complaints of pain for rest of shift. Patient remains on room air. No fever noted.
[2022-02-26 20:00] VITALS: BP 125/67; PULSE 72; RESP 17; TEMP 36.8; O2SAT 96
[2022-02-26 20:44] LABS: Anion Gap 11.1 mEq/L (5-15); Blood Urea Nitrogen 11 mg/dl (7-17); Calcium 8.7 mg/dl (8.4-10.2); Carbon Dioxide 25 mmol/L (22.0-30.0); Chloride 108 mmol/L (98-107); Creatinine Clearance Estimated 155 mL/min (50-200); Estimated Glomerular Filt Rate 98 ml/min (>60); GFR (African American) 119 ML/MIN (>60); Glucose 100 mg/dl (74-100); Potassium 4.1 mmoL/L (3.5-5.1); Sodium 140 mmol/L (136-145)
[2022-02-27 04:00] VITALS: BP 113/65; PULSE 89; RESP 16; TEMP 36.7; O2SAT 95; BMI 31.8
--- NOTE | 2022-02-27 06:52 | PC.NURSE ---
Pt given po pain medication prior to dsg change. Pt states favorable results. No c/o voiced to staff. Call light within reach.
--- NOTE | 2022-02-27 07:37 | P.PN_ITS ---
Subjective Patient reports: no new complaints and feels better Exam Data for Last 24 hours Vital signs and Labs for Last 24 Hours: Temp Pulse Resp BP Pulse Ox 98.1 F 89 16 113/65 95 02/27/22 04:00 02/27/22 04:00 02/27/22 04:00 02/27/22 04:00 02/27/22 04:00 Laboratory Results - last 24 hr 02/26/22 14:50: Hemoglobin A1c 5.3 02/26/22 14:50: WBC 7.9 D, RBC 3.60 L, Hgb 11.3 L, Hct 33.0 L, MCV 91.7, MCH 31.2, MCHC 34.1, RDW 12.9, Plt Count 406, MPV 7.8, Neut % (Auto) 55.2, Lymph % (Auto) 30.5, [place] % (Auto) 4.6, Eos % (Auto) 8.7, Baso % (Auto) 1.0, Neut # (Auto) 4.3, Lymph # (Auto) 2.4, [place] # (Auto) 0.4, Eos # (Auto) 0.7 H, Baso # (Auto) 0.1 02/26/22 14:50: Sodium 141, Potassium 3.7, Chloride 108 H, Carbon Dioxide 25, Anion Gap 11.7, BUN 7 D, Creatinine 0.80 D, Estimated Creat Clear 136, Estimated GFR 84, Est GFR ( Amer) 102 D, Glucose 108 H, Calcium 8.2 L 02/26/22 20:09: Sodium 140, Potassium 4.1, Chloride 108 H, Carbon Dioxide 25, Anion Gap 11.1, BUN 11 D, Creatinine 0.70, Estimated Creat Clear 155, Estimated GFR 98, Est GFR ( Amer) 119, Glucose 100, Calcium 8.7 I & O for Last 24 hours: Intake & Output 02/24/22 02/25/22 02/26/22 02/27/22 11:59 11:59 11:59 11:59 Intake Total 1850 2460 / 2460 2069 / 2293 Output Total 0 / 0 1700 / 1700 0 / 0 0 / 0 Balance 1850 760 / 760 2069 / 2293 Weight 178 lb 3 oz 183 lb 2 oz 184 lb 5 oz 180 lb Microbiology Reports for the Last 24 Hours: Microbiology 02/24/22 Unknown Breast,Right - Abscess Gram Stain - Final 02/24/22 Unknown Breast,Right - Abscess Wound Culture - Final Staphylococcus aureus Constitutional Constitutional: no acute distress *Routine Respiratory Exam Respiratory: Absent respiratory distress *Routine Cardiovascular Exam Cardiovascular: Absent tachycardia *Routine Skin Exam Comments: Right breast abscess continues to show signs of improvement. No spreading cellulitis. Left breast abscess site with significant improvement over the last 24 hours with regard to erythematous blush. Less tender. Progress Note: A&P Assessment and plan (1) Abscess of breast: Status: Acute Assessment and plan: Overall, doing very well status post incision and drainage. Continue dressing changes Possible discharge home soon with close outpatient follow-up Possible antibiotic transition to PO as per primary service
[2022-02-27 08:00] VITALS: BP 105/72; PULSE 72; RESP 16; TEMP 36.8; O2SAT 96
--- NOTE | 2022-02-27 08:49 | EXP.PN ---
Subjective *Date: 02/27/22 *Time: 08:49 Interval history: Patient states she is ready to go home. She states she had a good day yesterday. Dr. Carlson, surgeon has been added and states she can go home. She is eating and drinking okay. She denies chest pain and shortness of breath. Pain in her breast is less. CBC is normalized. Wound culture reveals staph aureus sensitive to the vanc which she is on as well as p.o. sulfa and clindamycin. Patient is concerned about being able to do her own dressing changes. With 's help she feels that she probably could do this. Stressed infectious precautions with dressing changes. Exam Data for Last 24 hours Vital signs and Labs for Last 24 Hours: Temp Pulse Resp BP Pulse Ox 98.1 F 89 16 113/65 95 02/27/22 04:00 02/27/22 04:00 02/27/22 04:00 02/27/22 04:00 02/27/22 04:00 Laboratory Results - last 24 hr 02/26/22 14:50: Hemoglobin A1c 5.3 02/26/22 14:50: WBC 7.9 D, RBC 3.60 L, Hgb 11.3 L, Hct 33.0 L, MCV 91.7, MCH 31.2, MCHC 34.1, RDW 12.9, Plt Count 406, MPV 7.8, Neut % (Auto) 55.2, Lymph % (Auto) 30.5, [place] % (Auto) 4.6, Eos % (Auto) 8.7, Baso % (Auto) 1.0, Neut # (Auto) 4.3, Lymph # (Auto) 2.4, [place] # (Auto) 0.4, Eos # (Auto) 0.7 H, Baso # (Auto) 0.1 02/26/22 14:50: Sodium 141, Potassium 3.7, Chloride 108 H, Carbon Dioxide 25, Anion Gap 11.7, BUN 7 D, Creatinine 0.80 D, Estimated Creat Clear 136, Estimated GFR 84, Est GFR ( Amer) 102 D, Glucose 108 H, Calcium 8.2 L 02/26/22 20:09: Sodium 140, Potassium 4.1, Chloride 108 H, Carbon Dioxide 25, Anion Gap 11.1, BUN 11 D, Creatinine 0.70, Estimated Creat Clear 155, Estimated GFR 98, Est GFR ( Amer) 119, Glucose 100, Calcium 8.7 I & O for Last 24 hours: Intake & Output 02/24/22 02/25/22 02/26/22 02/27/22 11:59 11:59 11:59 11:59 Intake Total 1851 / 1851 2460 / 2460 2069 / 2069 2293 / 2293 Output Total 0 / 0 1700 / 1700 0 / 0 0 / 0 Balance 1851 / 1851 760 / 760 2069 / 2069 2293 / 2293 Weight 178 lb 3 oz 183 lb 2 oz 184 lb 5 oz 180 lb Microbiology Reports for the Last 24 Hours: Microbiology 02/24/22 Unknown Breast,Right - Abscess Gram Stain - Final 02/24/22 Unknown Breast,Right - Abscess Wound Culture - Final Staphylococcus aureus Constitutional Constitutional: no acute distress Comments: Appears comfortable lying in the bed. *Routine Respiratory Exam Respiratory: Present CTA bilaterally *Routine Cardiovascular Exam Cardiovascular: Present RRR *Routine Abdominal Exam Abdominal: Present soft and normoactive bowel sounds; Absent tenderness *Routine Extremities Exam Extremities: Absent edema *Routine Skin Exam Skin: Present wounds (Right breast wound with packing and no surrounding erythema. Left breast with packing and some surrounding erythema.) *Routine Neurological Exam Neurological: Present alert and oriented X3 Assessment and Plan *Assessment and plan (1) Abscess of breast: Status: Acute Category: Medical Code(s): N61.1 - Abscess of the breast and nipple (2) Leukocytosis: Status: Acute Category: Medical Code(s): D72.829 - Elevated white blood cell count, unspecified (3) Hypokalemia: Status: Acute Category: Medical Code(s): E87.6 - Hypokalemia Plan Possibly home today. Nursing to work with patient for wound care.
--- NOTE | 2022-02-27 13:55 | HMH.PHAINT1 ---
Pharmacy Intervention Comments: Met with patient at bedside to discuss discharge medications. Reviewed NEW Bactrim and tramadol and indications for each. Discussed possible adverse events/mitigation strategies. Patient verbalized understanding of the information provided and had no questions or concerns at this time.
--- NOTE | 2022-02-27 14:23 | PC.NURSE ---
PT IS BEING DISCHARGED HOME WITH FOLLOW UP APPOINTMENTS. PT WILL NEED TO CALL AND MAKE APPOINTMENT WITH . WILL FOLLOW UP WITH IN [place]. DRESSING CHANGED TO THE BILATERAL BREAST BEFORE DISCHARGE. PT WAS GIVEN SUPPLIES AT HOME FOR DRESSING CHANGES AND STATED HER WILL HELP HER.
[2022-02-27 14:35] LABS: Vancomycin,Trough 18.6 ug/mL (5.0-10.0)
--- NOTE | 2022-02-27 22:37 | EXP.DC.SUM ---
General Admission date:: 02/23/22 Discharge date: 02/27/22 HPI HPI HPI: Complains of abscesses in both breasts.? States that she had her nipples pierced on 02/07/2022.? On 02/16/2022 she began feeling feverish, flulike symptoms.? The next day she had improvement in flu symptoms, but development of redness, induration, pain and tenderness on both breasts, lateral left breast and medial right breast.? States that she has been able to express some pus from the nipples, but she does not have any pain at the nipples where her piercings are. (above as per ER physician) Hospital Course Hospital Course Hospital Course: Surgery was consulted and the patient was started on IV antibiotics. Dr. Graves saw the patient and planned to take her to the OR for an I&D of both abscesses. She was running a fever and generally felt bad. Her potassium normalized and her white blood cell count improved. She was taken to the OR on 02/24/2022 and had incision and drainage of bilateral breast abscesses. Both wounds were packed and dressings were applied. She continued with pain. Her fever did improve. Her blood cultures showed no growth, but the wound culture was growing gram-positive cocci. She had significant improvement on the right side, but the left-sided abscess was more complex and cellulitic and it did not show signs of equivalent improvement. Dr. Graves wanted her to continue IV antibiotics and dressing changes and have close outpatient follow-up. He felt there was no need for urgent repeat incision and drainage on the left, however this might ultimately be required. The left wound did begin improving after more IV antibiotics and there was less erythema. Her pain did improve and the erythema continued to improve. Her CBC normalized. Her wound culture revealed staph aureus sensitive to vancomycin as well as p.o. sulfa and clindamycin. The patient felt with her 's help, she could perform dressing changes at home. She was stable to be discharged on Bactrim and tramadol and will follow up with Dr. Powers and Dr. Graves. Exam Data for Last 24 hours Vital signs and Labs for Last 24 Hours: Temp Pulse Resp BP Pulse Ox 98.3 F 72 16 105/72 L 96 02/27/22 08:00 02/27/22 08:00 02/27/22 08:00 02/27/22 08:00 02/27/22 08:00 Laboratory Results - last 24 hr 02/27/22 13:39: Vancomycin Trough 18.6 H I & O for Last 24 hours: Intake & Output 02/25/22 02/26/22 02/27/22 02/28/22 11:59 11:59 11:59 11:59 Intake Total 2460 / 2460 2069 2773 / 2773 600 / 600 Output Total 1700 / 1700 0 / 0 0 / 0 Balance 760 / 760 2069 2773 / 2773 600 / 600 Weight 183 lb 2 oz 184 lb 5 oz 180 lb Microbiology Reports for the Last 24 Hours: Microbiology 02/24/22 Unknown Breast,Right - Abscess Gram Stain - Final 02/24/22 Unknown Breast,Right - Abscess Wound Culture - Final Staphylococcus aureus Narrative: Constitutional Constitutional: no acute distress *Routine HEENT Exam Head: Present normocephalic and atraumatic Eye: Present EOMI and PERRL ENT: Present mucous membranes moist *Routine Neck Exam Neck: Present supple and full ROM *Routine Respiratory Exam Respiratory: Present CTA bilaterally *Routine Cardiovascular Exam Cardiovascular: Present RRR *Routine Abdominal Exam Abdominal: Present soft and normoactive bowel sounds; Absent tenderness *Routine Rectal Exam Rectal:: deferred *Routine Genitalia Exam Genitalia:: deferred *Routine Extremities Exam Extremities: Absent cyanosis, clubbing or edema *Routine Skin Exam Skin: Present intact and erythema (along the lateral aspect of the left breast and the medial aspect of the right breast, there is tenderness and firmness in these areas) *Routine Neurological Exam Neurological: Present alert and oriented X3 Results Data Completed and Pending Labs on day of discharge: Labs from last 24 hours 02/27/22 13:39 Vancomycin Trough 18.6 H P
--- NOTE | 2022-02-28 12:43 | CARE MANAGER ---
Contacted patient related to hospital discharge. She states she is tired but better. She has her medication and is aware of follow up appointments. Denies questions or concerns. CHET Muñoz
== END 2022-02-27 15:14 | disposition home or self-care (01) ==
LOC: ER 12:37 → ICU 02-24 04:32 → 2ND 02-24 15:49
PROVIDERS: Surgery; Admitting Provider Family Medicine; Emergency Provider Emergency Medicine; Visit Provider Family Medicine
PROC: (CPT 10061; principal; 2022-02-24 09:30)
DX: N61.1 Abscess of the breast and nipple (principal); B95.61 Methicillin susceptible Staphylococcus aureus infection as the cause of diseases classified elsewhere; W45.8XXA Other foreign body or object entering through skin, initial encounter; E87.6 Hypokalemia; F17.210 Nicotine dependence, cigarettes, uncomplicated; Z20.822 Contact with and (suspected) exposure to COVID-19
CPT/HCPCS: 10061; 36415; 80048; 80053; 80202; 83036; 83605; 84703; 85007; 85025; 85651; 86140; 87040; 87070; 87075; 87077; 87186; 87205; 99285; C9803; G0378; J2405; J3370; U0003; U0005